=== PATIENT | female | born 1970 | race Caucasian/White ===

== ENCOUNTER 2021-11-01 12:15 | Emergency (ER) | payer OTHER ==
[~2021-11-01] VITALS: Ht 137.2 cm; Wt 57.7 kg
[2021-11-01] MEDS ORDERED: ATOR20TA86 PO ×2 (12:27→15:39)
[2021-11-01] MEDS ORDERED: CLON-592 PO ×2 (12:27→15:39)
[2021-11-01] MEDS ORDERED: PROP20TA18 PO ×2 (12:27→15:41)
[2021-11-01] MEDS ORDERED: LORazepam 1 MG TABLET PO ONE (15:30)
[2021-11-01] MEDS ORDERED: ACET-2247 PO (15:37)
[2021-11-01] MEDS ORDERED: GUAI-1372 PO (15:37)
[2021-11-01] MEDS ORDERED: LOPE2CAP14 PO (15:37)
[2021-11-01] MEDS ORDERED: LORA-999 PO (15:39)
[2021-11-01] MEDS ORDERED: MULT-1203 PO (15:39)
[2021-11-01] MEDS ORDERED: LORazepam 2 MG/ML VIAL IM ONE (15:45)
[2021-11-01 17:09] LABS: BASOPHILS % (AUTO) 0.5 % (0.0-2.0); EOSINOPHILS % (AUTO) 1.6 % (1.0-6.0); HEMATOCRIT 48.3 % (36-46); HEMOGLOBIN 16.6 g/dL (12.0-16.0); LYMPHOCYTES # (AUTO) 1.5 K/uL (1.0-4.8); LYMPHOCYTES % (AUTO) 17.9 % (22.0-44.0); MEAN CORPUSCULAR HEMOGLOBIN 32.4 pg (26.0-34.0); MEAN CORPUSCULAR HGB CONC 34.4 G/dL (31.0-37.0); MEAN CORPUSCULAR VOLUME 94 fL (80-100); MONOCYTES % (AUTO) 11.5 % (2.0-9.0); NEUTROPHILS # (AUTO) 5.7 K/uL (1.8-7.7); NEUTROPHILS % (AUTO) 68.5 % (40.0-70.0); PLATELET COUNT (AUTO) 210 K/uL (150-450); RED BLOOD CELL COUNT(AUTO) 5.12 MIL/uL (4.00-5.20); RED CELL DISTRIBUTION WIDTH 12.6 % (11.5-14.5)
[2021-11-01 17:25] LABS: ANION GAP 10 mmol/L (8-16); CALCIUM, TOTAL 9.5 mg/dL (8.8-10.5); CARBON DIOXIDE 26 mmol/L (22-29); CHLORIDE 105 mmol/L (98-107); CREATININE 0.84 mg/dL (0.60-1.30); GLOMERULAR FILTR. RATE CALC > 60 mL/min (>60); GLUCOSE,RANDOM 99 mg/dL (70-110); POTASSIUM 3.8 mmol/L (3.5-5.1); SODIUM SERUM 141 mmol/L (136-145); UREA NITROGEN, BLOOD 18 mg/dL (7-18)
[2021-11-01 17:30] LABS: ALANINE AMINOTRANSFERASE 46 U/L (12-78); ALBUMIN 3.6 g/dL (3.4-5.0); ALKALINE PHOSPHATASE 125 U/L (46-116); ASPARTATE AMINOTRANSFERASE 38 U/L (15-37); BILIRUBIN,TOTAL 0.6 mg/dL (0.1-1.0); TOTAL PROTEIN, SERUM 8.2 g/dL (6.4-8.2)
[2021-11-01 17:45] VITALS: BP 114/81
[2021-11-01] MEDS ORDERED: LORA-1000 PO (18:05)
== END 2021-11-01 18:29 | disposition home or self-care (01) ==
LOC: EMS 12:21
DX: F41.9 Anxiety disorder, unspecified (principal); R25.1 Tremor, unspecified; Q93.82 Williams syndrome; E78.00 Pure hypercholesterolemia, unspecified; I10 Essential (primary) hypertension
CPT/HCPCS: 36415; 80053; 85025; 96372; 99283; J2060